=== PATIENT | male | born 1945 | race Caucasian/White ===

== ENCOUNTER → 2022-03-09 19:55 | Outpatient (ROUT) | payer MEDICARE, OTHER, SELFPAY ==
[2022-03-10 00:59] LABS: HEMOLYSIS < 15 (0-50)
[2022-03-10 01:04] LABS: Alanine Aminotransferase 27 IU/L (<50); Albumin 4.2 g/dL (3.5-5.0); Albumin Globulin Ratio 1.3 (1.0-2.8); Alkaline Phosphatase 50 U/L (38-126); Aspartate Aminotransferase 31 IU/L (17-59); Bilirubin Total 0.9 mg/dL (0.2-1.3); Bilirubin Unconjugated 0.7 mg/dL (0.0-1.1); Cholesterol 185 mg/dL (140-199); Globulin 3.2 g/dL (1.7-4.1); HDL Cholesterol 65 mg/dL (40-60); LDL Cholesterol Calculated 90 mg/dL (<100); Total Protein 7.4 g/dL (6.3-8.2); Triglycerides 149 mg/dL (35-150)
[2022-03-10 01:47] LABS: Thyroid Stimulating Hormone 0.791 uIU/mL (0.47-4.68)
[2022-03-11 15:19] LABS: Prostate Specific Antigen 1.59 ng/mL (0.10-4.00)
== END ==
PROVIDERS: Family Provider Family Medicine; PCP Family Medicine; Visit Provider Nurse Practitioner
DX: I12.9 Hypertensive chronic kidney disease with stage 1 through stage 4 chronic kidney disease, or unspecified chronic kidney disease (principal); N18.1 Chronic kidney disease, stage 1; E78.2 Mixed hyperlipidemia; N40.1 Benign prostatic hyperplasia with lower urinary tract symptoms; F32.A Depression, unspecified; R53.82 Chronic fatigue, unspecified
CPT/HCPCS: 80061; 80076; 84153; 84443

== ENCOUNTER 2024-04-07 13:08 | Day surgery (SDC) | payer MEDICARE, SELFPAY ==
[2024-04-07] MEDS: LACTATED RINGERS 1,000 ML 42 ML IV (13:27)
[2024-04-07 13:36] VITALS: BP 152/77; PULSE 51; RESP 18; TEMP 36.2; O2SAT 99
--- NOTE | 2024-04-07 14:12 | PM.HP.1 ---
History of Present Illness History of Present Illness Date Patient Seen: 04/07/24 Time Patient Seen: 14:12 Chief complaint: Colonoscopy Narrative: 78-year-old man here for elective hemorrhoidal banding. No interval change in health. [facility] Medical History Trigger finger GERD (gastroesophageal reflux disease) Restless leg syndrome Sleep apnea Lack of bladder control Anxiety Hyperlipemia Hypertension Surgical History H/O hemorrhoidectomy Family History Father Hypertension Heart disease Social History marital status: household members: spouse lives independently: Yes occupational status: previously employed Smoking Status: Former smoker alcohol intake: current substance use type: marijuana Meds Home Medications and Allergies Home Medications Medication Instructions Recorded Confirmed Type VITAMIN D (Vitamin D3) 2,000 unit PO QDAY ##0 11/12/11 04/07/24 History brimonidine 0.2 % eye drops 2 drp EYE-BOTH DAILY 02/27/24 04/07/24 History citalopram 40 mg tablet 20 mg PO DAILY 02/27/24 04/07/24 History coenzyme Q10 300 mg capsule 300 mg PO DAILY 02/27/24 04/07/24 History ezetimibe 10 mg tablet 10 mg PO DAILY 02/27/24 04/07/24 History famotidine 40 mg tablet 40 mg PO BID 02/27/24 04/07/24 History gabapentin 600 mg tablet 600 mg PO BID 02/27/24 04/07/24 History losartan 25 mg tablet 25 mg PO DAILY 02/27/24 04/07/24 History pravastatin 10 mg tablet 10 mg PO DAILY 02/27/24 04/07/24 History tamsulosin 0.4 mg capsule (Flomax) 0.4 mg PO BID 02/27/24 04/07/24 History timolol 0.5 %-latanoprost 0.005 % 2 drp ophthalmic (eye) BID 02/27/24 04/07/24 History (PF) eye drops Allergies Allergy/AdvReac Type Severity Reaction Status Date / Time simvastatin [SIMVASTATIN] Allergy Unknown Muscle Verified 04/07/24 13:31 aches atorvastatin Allergy Verified 04/07/24 13:31 Exam Vital Signs (past 8 hours): - 04/07/24 13:36 Temperature 97.2 F L Pulse Rate 51 L Respiratory Rate 18 Blood Pressure 152/77 H Pulse Oximetry 99 Oxygen Delivery Method Room Air Oxygen Delivery Method Room Air Narrative Exam Narrative: General adult man alert oriented no acute distress Chest nonlabored respiration Extremities warm well perfused Assessment & Plan Assessment and plan (1) Hemorrhoids: Qualifiers: Hemorrhoid type: second degree Qualified Code(s): K64.1 - Second degree hemorrhoids Status: Acute Plan 78-year-old man here for elective hemorrhoidal banding. Overview of the procedure discussed. Risks benefits alternatives reviewed and he provides his consent to proceed. Time-Based Coding :: [TOTAL MINUTES] spent with patient and on the chart (including review of chart, obtaining history, exam, reviewing outside data, placing orders, documenting exam and treatment plan, and counseling patient) on [DATE].
--- NOTE | 2024-04-07 14:29 | PM.OP.1 ---
Operative Date/Time/Diagnoses Date of procedure: 04/07/24 Time of procedure: 14:30 Pre-op diagnosis: Internal hemorrhoids Post-op diagnosis: same Procedure & Clinicians Procedure: Hemorrhoidal banding Same procedure as scheduled: Yes Indications: 78-year-old man with symptomatic internal hemorrhoids history of prior excisional hemorrhoidectomy Surgeon: Colt Cantu Anesthesia Type: MAC +/- Operative Notes Findings: Grade 2 internal hemorrhoids x3 columns Specimen(s): none sent Estimated Blood Loss (mL): 5 Procedure in detail: Patient was brought to the procedure room. He was placed on the left lateral decubitus position. Time-out was performed. Anesthesia was induced. The anoscope was placed into the the rectum. Examination demonstrated 3 columns of grade 2 internal hemorrhoids. Each column was grasped using the suction ligating device then doubly ligated at its base. Procedure was repeated total of 3 times. He tolerated the procedure well and was transferred to recovery in stable condition. Complications: none Post-operative Condition: stable Disposition: same day surgery
[2024-04-07 14:31] VITALS: BP 90/50; PULSE 43; RESP 12; TEMP 36.3; O2SAT 95
[2024-04-07 14:35] VITALS: BP 90/51; PULSE 44; RESP 12; O2SAT 94
[2024-04-07 14:40] VITALS: BP 95/58; PULSE 47; RESP 12; O2SAT 98
[2024-04-07 14:45] VITALS: BP 116/69; PULSE 47; RESP 13; O2SAT 97
[2024-04-07 14:51] VITALS: BP 132/76; PULSE 46; RESP 12; TEMP 36.7; O2SAT 98
== END 2024-04-07 15:05 | disposition home or self-care (01) ==
PROVIDERS: Family Provider Family Medicine; PCP Family Medicine; Referring Provider Surgery; Visit Provider Surgery
PROC: 0DJD8ZZ Inspection of Lower Intestinal Tract, Via Natural or Artificial Opening Endoscopic (ICD-10-PCS; CPT 45378; principal; 2024-04-07 14:15)
DX: K64.1 Second degree hemorrhoids (principal)
CPT/HCPCS: 46221; J2704